=== PATIENT | female | born 1995 | race Caucasian/White ===

== ENCOUNTER → 2017-11-28 | Outpatient (CLI) | payer SELFPAY ==
[2017-11-28 18:21] LABS: HIV SCRN NEGATIVE (NEGATIVE)
[2017-11-28 18:22] LABS: CONTROL LINE INT CTR LINE PRESENT; HIV SCRN1 NEGATIVE (NEGATIVE)
[2017-11-30 09:23] LABS: HEPATITIS B SURFACE ANTIGEN NEGATIVE (NEGATIVE)
[2017-11-30 09:48] LABS: HEPATITIS C VIRUS ABY INDEX 0.2 INDEX (<0.8)
[2017-11-30 09:48] LABS: HEPATITIS B CORE ANTIBODY IGM NEGATIVE (NEGATIVE)
== END ==
LOC: M LAB 17:03
DX: Z11.4 Encounter for screening for human immunodeficiency virus [HIV] (principal); Z11.59 Encounter for screening for other viral diseases
CPT/HCPCS: 87340

== ENCOUNTER → 2018-07-24 | Outpatient (REF) | payer OTHER ==
[2018-07-24 19:56] LABS: INFLUENZA A AMPLIFICATION NEGATIVE (NEGATIVE); INFLUENZA B AMPLIFICATION NEGATIVE (NEGATIVE)
== END ==
LOC: M LAB REF 19:12
PROVIDERS: ATTEND Physician Assistant
DX: J11.1 Influenza due to unidentified influenza virus with other respiratory manifestations (principal)

== ENCOUNTER → 2019-02-20 | Outpatient (REF) | payer OTHER ==
[2019-02-20 20:28] LABS: INFLUENZA A AMPLIFICATION NEGATIVE (NEGATIVE); INFLUENZA B AMPLIFICATION NEGATIVE (NEGATIVE)
== END ==
LOC: M LAB REF 16:54
PROVIDERS: ATTEND Physician Assistant
DX: J11.1 Influenza due to unidentified influenza virus with other respiratory manifestations (principal)

== ENCOUNTER → 2020-03-11 | Outpatient (CLI) | payer OTHER ==
[2020-03-14 16:15] LABS: D001-IgE D pteronyssinus <0.10 kU/L (Class 0); E003-IGE HORSE EPITHELIA/DAND 1.17 kU/L (Class II); E004-IGE COW DANDER 0.11 kU/L (Class 0/I); E005-IgE Dog Dander 4.43 kU/L (Class IV); F002-IgE Milk 0.19 kU/L (Class 0/I); F004-IgE Wheat < 0.10 kU/L (Class 0); F013-IgE Peanut < 0.10 kU/L (Class 0); F014-IgE Soybean < 0.10 kU/L (Class 0); F026-IgE Pork 0.34 kU/L (Class I); F027-IgE Beef < 0.10 kU/L (Class 0); F210-IGE PINEAPPLE <0.10 kU/L (Class 0); F245-IgE Egg, Whole < 0.10 kU/L (Class 0); F290-IGE OYSTER <0.10 kU/L (Class 0); FX02-IgE Food Mix (Sea Foods) Negative (.); G002-IgE Bermuda Grass < 0.10 kU/L (Class 0); G008-IgE Kentucky Bluegrass < 0.10 kU/L (Class 0); M001-IgE Penicillium chrysogen < 0.10 kU/L (Class 0); M002 IgE Cladosporium herbaru < 0.10 kU/L (Class 0); M003 IgE Aspergillus fumigatu < 0.10 kU/L (Class 0); M006-IgE Alternaria alternata 0.47 kU/L (Class I); T001-IgE Maple/Box Elder < 0.10 kU/L (Class 0); T003-IgE Common Silver Birch < 0.10 kU/L (Class 0); T006-IgE Cedar, Mountain < 0.10 kU/L (Class 0); T007-IgE Oak, White < 0.10 kU/L (Class 0); T008-IgE Elm, American < 0.10 kU/L (Class 0); T015-IgE Ash, White < 0.10 kU/L (Class 0); T041-IgE Hickory, White < 0.10 kU/L (Class 0); T070-IgE White Mulberry < 0.10 kU/L (Class 0); W001-IgE Ragweed, Short < 0.10 kU/L (Class 0); W009-IgE Plantain, English < 0.10 kU/L (Class 0); W014-IgE Pigweed, Rough < 0.10 kU/L (Class 0); W018-IgE Sheep Sorrel < 0.10 kU/L (Class 0)
[2020-03-14 23:08] LABS: F026-IGE PORK 0.34 kU/L (Class I)
== END ==
LOC: M WUC 14:15
PROVIDERS: ATTEND Nurse Practitioner Family
DX: J30.1 Allergic rhinitis due to pollen (principal); J30.81 Allergic rhinitis due to animal (cat) (dog) hair and dander; J30.89 Other allergic rhinitis; R05 Cough; Z91.018 Allergy to other foods

== ENCOUNTER → 2020-03-11 | Outpatient (CLI) | payer OTHER ==
[2020-03-11 16:00] LABS: BASO # 0.1 10^3/uL (0.0-0.2); BASO % 0.7 % (0.0-1.0); EOS # 0.8 10^3/uL (0.0-0.5); EOS % 7.6 % (0.0-3.0); HEMATOCRIT 41.5 % (36.0-47.0); HEMOGLOBIN 13.7 g/dl (12.0-15.5); LYMPH # 2.8 10^3/uL (1.5-5.0); LYMPH % 25.9 % (24.0-44.0); MEAN CORPUSCULAR HEMOGLOBIN 30.5 pg (27.0-33.0); MEAN CORPUSCULAR VOLUME 92.4 fl (80.0-96.0); MONO # 0.7 10^3/uL (0.0-0.8); NEUTROPHILS # 6.4 10^3/uL (1.5-8.5); NEUTROPHILS % 59.2 % (36.0-66.0); PLATELET COUNT, AUTOMATED 326 10^3/uL (150-450); RED BLOOD COUNT 4.49 10^6/uL (4.00-5.40); WHITE BLOOD COUNT 10.8 10^3/uL (4.0-10.0)
[2020-03-11 16:40] LABS: ALBUMIN 4.1 GM/DL (3.2-5.2); ALT/SGPT 21 U/L (12-78); BILIRUBIN,TOTAL 0.3 MG/DL (0.2-1.0); BLOOD UREA NITROGEN 8 MG/DL (7-18); CALCIUM LEVEL 9.5 MG/DL (8.5-10.1); CARBON DIOXIDE LEVEL 27 MEQ/L (21-32); CHLORIDE LEVEL 105 MEQ/L (98-107); CHOLESTEROL LEVEL 220 MG/DL (<200); CHOLESTEROL RISK RATIO 5.945 (<5); CREATININE FOR GFR 0.94 MG/DL (0.55-1.30); GLOMERULAR FILTRATION RATE > 60.0 (>60); GLUCOSE, FASTING 88 MG/DL (70-100); HDL CHOLESTEROL 37 MG/DL (>40); IRON (FE) 38 UG/DL (50-170); NON-HDL-C 183 MG/DL; PERCENT SATURATION 12.3 % (13.2-45.0); POTASSIUM SERUM 4.1 MEQ/L (3.5-5.1); SODIUM LEVEL 138 MEQ/L (136-145); TOTAL 25(OH) VITAMIN D 53.9 NG/ML (30.0-100.0); TOTAL IRON BINDING CAPACITY 308 UG/DL (250-450); TOTAL PROTEIN 8.2 GM/DL (6.4-8.2); TRIGLYCERIDES LEVEL 435 MG/DL (<150)
== END ==
LOC: M WUC 14:11
PROVIDERS: ATTEND Internal Medicine
DX: Z00.00 Encounter for general adult medical examination without abnormal findings (principal); D50.9 Iron deficiency anemia, unspecified; E03.9 Hypothyroidism, unspecified

== ENCOUNTER 2021-04-03 02:37 | Emergency (ER) | payer OTHER ==
[~2021-04-03] VITALS: Ht 157.5 cm; Wt 59.1 kg
[2021-04-03] MEDS ORDERED: SYNT125T PO (02:44)
--- OUTSIDE RECORDS SUMMARY | 2021-04-03 02:46 | CCD ---
Author Author [facility] Address Unknown Phone Unavailable Support Name Relationship Address Phone JAROD SALINAS Next Of Kin [id number] [place] [address] NICK SALINAS Next Of Kin [address] [place] [address] Re-disclosure Warning The records that you are about to access may contain information from federally-assisted alcohol or drug abuse programs. If such information is present, then the following federally mandated warning applies: This information has been disclosed to you from records protected by federal confidentiality rules (42 CFR part 2). The federal rules prohibit you from making any further disclosure of this information unless further disclosure is expressly permitted by the written consent of the person to whom it pertains or as otherwise permitted by 42 CFR part 2. A general authorization for the release of medical or other information is NOT sufficient for this purpose. The Federal rules restrict any use of the information to criminally investigate or prosecute any alcohol or drug abuse patient.The records that you are about to access may contain highly sensitive health information, the redisclosure of which is protected by Article 27-F of the [facility] Public Health law. If you continue you may have access to information: Regarding HIV / AIDS; Provided by facilities licensed or operated by the [facility] Office of Mental Health; or Provided by the [facility] Office for People With Developmental Disabilities. If such information is present, then the following [facility] mandated warning applies: This information has been disclosed to you from confidential records which are protected by state law. State law prohibits you from making any further disclosure of this information without the specific written consent of the person to whom it pertains, or as otherwise permitted by law. Any unauthorized further disclosure in violation of state law may result in a fine or prison sentence or both. A general authorization for the release of medical or other information is NOT sufficient authorization for further disc losure. Family History Family Member Name Family Member Gender Family Member Status Date o f Status Description Data Source(s) Unknown Unknown Problem [facility] ([facility]) Immunizations Vaccine Date Status Description Data Source(s) COVID-19 VACCINE Moderna 10/11/2020 12:00:00 AM EDT completed [facility] Vaccine Series Complete: YESThis Data wa s Submitted to [facility] [employer]. COVID-19 VACC,MRNA(MODERNA)/PF 10/11/2020 12:00:00 AM EDT completed [facility] COVID-19 VACCINE Moderna 09/10/2020 12:00:00 AM EDT completed [facility] Vaccine Series Complete: NOThis Data was Submitted to [facility] [employer]. COVID-19 VACCINE, MRNA-[id number], LNP-S (MODERNA)/PF 09/10/2020 1 2:00:00 AM EDT completed [facility] INFLUENZA VIRUS VACCINE QUADRIVALENT 2019- (6 MOS AN D UP) 05/04/2020 12:00:00 AM EST completed [facility] Medications Medication Brand Name Start Date Product Form Dose Route Admi nistrative Instructions Pharmacy Instructions Status Indications Reaction Description Data Source(s) 112 mcg 03/04/2021 12:00:00 AM EDT tablet 30 TAKE ONE TABLET BY MOUTH EVERY DAY - NEEDS APPOINTMENT TAKE ONE TABLET BY MOUTH EVERY DAY - NEEDS APPOINTMENT SOLD: 03/08/2021 [facility] 112 mcg 02/01/2021 12:00:00 AM EDT tablet 30 TAKE ONE TABLET BY MOUTH EVERY DAY - NEEDS APPOINTMENT TAKE ONE TABLET BY MOUTH EVERY DAY - NEEDS APPOINTMENT SOLD: 02/08/2021 [facility] 50 mcg/actuation 11/18/2020 12:00:00 AM EDT spray,suspension 16 INSTILL 1 SPRAY IN EACH NOSTIL ONCE A DAY INSTILL 1 SPRAY IN EACH NOSTIL ONCE A DAY SOLD: 11/18/2020 [facility] 100 mcg/actuation 11/18/2020 12:00:00 AM EDT blister with de vice 30 INHALE ONE PUFF BY MOUTH EVERY DAY WITH MOUTH RINSING INHALE ONE PUFF BY MOUTH EVERY DAY WITH MOUTH RINSING SOLD: 11/18/2020 [facility] 0.1 % 11/17/2020 12:00:00 AM EDT drops 5 INSTILL 1 DROP IN EACH EYE ONCE DAILY NEEDED FOR ITCHY OR WATERY EYES INSTILL 1 DROP IN EACH EYE ONCE DAILY NEEDED FOR ITCHY OR WATERY EYES SOLD: 11/18/2020 [facility] 90 mcg/actuation 10/14/2020 12:00:00 AM EDT HFA aerosol inha ler 8 INHALE TWO PUFFS BY MOUTH EVERY 4 TO 6 HOURS UP TO FOUR TIMES A DAY NEEDED FOR FOR SHORTNESS OF BREATH, WHEEZING OR PERSISTENT COUGH INHALE TWO PUFFS BY MOUTH EVERY 4 TO 6 HOURS UP TO FOUR TIMES A DAY NEEDED FOR FOR SHORTNESS OF BREATH, WHEEZING OR PERSISTENT COUGH SOLD: 10/17/2020 [facility] Radha Fe 06/23 28 Day Pack 1 mg-20 mcg (21)/75 mg (7) NORETHINDRONE-E.ESTRADIOL-IRON 10/14/2020 12:00:00 AM EDT tablet 84 TAKE ONE TABLET BY MOUTH EVERY DAY TAKE ONE TABLET BY MOUTH EVERY DAY SOLD: 10/17/2020 [facility] 10 mg 08/19/2020 12:00:00 AM EDT tablet 30 TAKE ONE TABLET BY MOUTH AT BEDTIME NEEDED FOR ALLERGIC RHINITIS TAKE ONE TABLET BY MOUTH AT BEDTIME NEEDED FOR ALLERGIC RHINITIS SOLD: 09/22/2020 [facility] 10 mg 08/19/2020 12:00:00 AM EDT tablet 30 TAKE ONE TABLET BY MOUTH AT BEDTIME NEEDED FOR ALLERGIC RHINITIS TAKE ONE TABLET BY MOUTH AT BEDTIME NEEDED FOR ALLERGIC RHINITIS SOLD: 08/22/2020 [facility] montelukast 10 MG Oral Tablet MONTELUKAST SODIUM 07/15/2020 12:0 0:00 AM EST tablet 30 TAKE ONE TABLET BY MOUTH EVERY D AY TAKE ONE TABLET BY MOUTH EVERY DAY SOLD: 07/17/2020 [facility] 112 mcg 07/15/2020 12:00:00 AM EST tablet 30 TAKE ONE TABLET BY MOUTH EVERY DAY TAKE ONE TABLET BY MOUTH EVERY DAY SOLD: 07/17/2020 [facility] montelukast 10 MG Oral Tablet MONTELUKAST SODIUM 07/15/2020 12:0 0:00 AM EST tablet 30 TAKE ONE TABLET BY MOUTH EVERY D AY TAKE ONE TABLET BY MOUTH EVERY DAY SOLD: 08/22/2020 [facility] montelukast 10 MG Oral Tablet MONTELUKAST SODIUM 07/15/2020 12:0 0:00 AM EST tablet 30 TAKE ONE TABLET BY MOUTH EVERY D AY TAKE ONE TABLET BY MOUTH EVERY DAY SOLD: 10/25/2020 [facility] 112 mcg 07/15/2020 12:00:00 AM EST tablet 30 TAKE ONE TABLET BY MOUTH EVERY DAY TAKE ONE TABLET BY MOUTH EVERY DAY SOLD: 12/31/2020 [facility] 112 mcg 07/15/2020 12:00:00 AM EST tablet 30 TAKE ONE TABLET BY MOUTH EVERY DAY TAKE ONE TABLET BY MOUTH EVERY DAY SOLD: 11/25/2020 [facility] montelukast 10 MG Oral Tablet MONTELUKAST SODIUM 07/15/2020 12:0 0:00 AM EST tablet 30 TAKE ONE TABLET BY MOUTH EVERY D AY TAKE ONE TABLET BY MOUTH EVERY DAY SOLD: 09/22/2020 [facility] 112 mcg 07/15/2020 12:00:00 AM EST tablet 30 TAKE ONE TABLET BY MOUTH EVERY DAY TAKE ONE TABLET BY MOUTH EVERY DAY SOLD: 09/22/2020 [facility] montelukast 10 MG Oral Tablet MONTELUKAST SODIUM 07/15/2020 12:0 0:00 AM EST tablet 30 TAKE ONE TABLET BY MOUTH EVERY D AY TAKE ONE TABLET BY MOUTH EVERY DAY SOLD: 12/31/2020 [facility] montelukast 10 MG Oral Tablet MONTELUKAST SODIUM 07/15/2020 12:0 0:00 AM EST tablet 30 TAKE ONE TABLET BY MOUTH EVERY D AY TAKE ONE TABLET BY MOUTH EVERY DAY SOLD: 11/25/2020 [facility] 112 mcg 07/15/2020 12:00:00 AM EST tablet 30 TAKE ONE TABLET BY MOUTH EVERY DAY TAKE ONE TABLET BY MOUTH EVERY DAY SOLD: 10/25/2020 [facility] 112 mcg 07/15/2020 12:00:00 AM EST tablet 30 TAKE ONE TABLET BY MOUTH EVERY DAY TAKE ONE TABLET BY MOUTH EVERY DAY SOLD: 08/22/2020 [facility] 0.3 mg/0.3 mL 04/28/2020 12:00:00 AM EST auto-injector 2 USE DIRECTED FOR ANAPYLAXIS USE DIRECTED FOR ANAPYLAXIS SOLD: 05/04/2020 [facility] 100 mcg/actuation 01/15/2020 12:00:00 AM EDT blister with de vice 30 INHALE ONE PUFF BY MOUTH EVERY DAY RINSE AFTER USE INHALE ONE PUFF BY MOUTH EVERY DAY RINSE AFTER USE SOLD: 03/21/2020 [facility] 100 mcg/actuation 01/15/2020 12:00:00 AM EDT blister with de vice 30 INHALE ONE PUFF BY MOUTH EVERY DAY RINSE AFTER USE INHALE ONE PUFF BY MOUTH EVERY DAY RINSE AFTER USE SOLD: 10/17/2020 [facility] 100 mcg/actuation 01/15/2020 12:00:00 AM EDT blister with de vice 30 INHALE ONE PUFF BY MOUTH EVERY DAY RINSE AFTER USE INHALE ONE PUFF BY MOUTH EVERY DAY RINSE AFTER USE SOLD: 08/22/2020 [facility] 100 mcg/actuation 01/15/2020 12:00:00 AM EDT blister with de vice 30 INHALE ONE PUFF BY MOUTH EVERY DAY RINSE AFTER USE INHALE ONE PUFF BY MOUTH EVERY DAY RINSE AFTER USE SOLD: 02/12/2020 [facility] 112 mcg 01/13/2020 12:00:00 AM EDT tablet 30 TAKE ONE TABLET BY MOUTH EVERY DAY TAKE ONE TABLET BY MOUTH EVERY DAY SOLD: 06/17/2020 [facility] 112 mcg 01/13/2020 12:00:00 AM EDT tablet 30 TAKE ONE TABLET BY MOUTH EVERY DAY TAKE ONE TABLET BY MOUTH EVERY DAY SOLD: 04/16/2020 [facility] 112 mcg 01/13/2020 12:00:00 AM EDT tablet 30 TAKE ONE TABLET BY MOUTH EVERY DAY TAKE ONE TABLET BY MOUTH EVERY DAY SOLD: 02/12/2020 [facility] 112 mcg 01/13/2020 12:00:00 AM EDT tablet 30 TAKE ONE TABLET BY MOUTH EVERY DAY TAKE ONE TABLET BY MOUTH EVERY DAY SOLD: 03/15/2020 [facility] 112 mcg 01/13/2020 12:00:00 AM EDT tablet 30 TAKE ONE TABLET BY MOUTH EVERY DAY TAKE ONE TABLET BY MOUTH EVERY DAY SOLD: 05/15/2020 [facility] montelukast 10 MG Oral Tablet MONTELUKAST SODIUM 01/08/2020 12:0 0:00 AM EDT tablet 30 TAKE ONE TABLET BY MOUTH EVERY D AY TAKE ONE TABLET BY MOUTH EVERY DAY SOLD: 02/12/2020 [facility] 90 mcg/actuation 01/08/2020 12:00:00 AM EDT HFA aerosol inha ler 8 INHALE TWO PUFFS BY MOUTH EVERY 4 TO 6 HOURS UP TO FOUR TIMES A DAY NEEDED FOR FOR SHORTNESS OF BREATH, WHEEZING OR PERSISTANT COUGH INHALE TWO PUFFS BY MOUTH EVERY 4 TO 6 HOURS UP TO FOUR TIMES A DAY NEEDED FOR FOR SHORTNESS OF BREATH, WHEEZING OR PERSISTANT COUGH SOLD: 02/12/2020 [facility] 90 mcg/actuation 01/08/2020 12:00:00 AM EDT HFA aerosol inha ler 8 INHALE TWO PUFFS BY MOUTH EVERY 4 TO 6 HOURS UP TO FOUR TIMES A DAY NEEDED FOR FOR SHORTNESS OF BREATH, WHEEZING OR PERSISTANT COUGH INHALE TWO PUFFS BY MOUTH EVERY 4 TO 6 HOURS UP TO FOUR TIMES A DAY NEEDED FOR FOR SHORTNESS OF BREATH, WHEEZING OR PERSISTANT COUGH SOLD: 08/22/2020 [facility] montelukast 10 MG Oral Tablet MONTELUKAST SODIUM 01/08/2020 12:0 0:00 AM EDT tablet 30 TAKE ONE TABLET BY MOUTH EVERY D AY TAKE ONE TABLET BY MOUTH EVERY DAY SOLD: 04/16/2020 [facility] montelukast 10 MG Oral Tablet MONTELUKAST SODIUM 01/08/2020 12:0 0:00 AM EDT tablet 30 TAKE ONE TABLET BY MOUTH EVERY D AY TAKE ONE TABLET BY MOUTH EVERY DAY SOLD: 06/17/2020 [facility] montelukast 10 MG Oral Tablet MONTELUKAST SODIUM 01/08/2020 12:0 0:00 AM EDT tablet 30 TAKE ONE TABLET BY MOUTH EVERY D AY TAKE ONE TABLET BY MOUTH EVERY DAY SOLD: 03/15/2020 [facility] montelukast 10 MG Oral Tablet MONTELUKAST SODIUM 01/08/2020 12:0 0:00 AM EDT tablet 30 TAKE ONE TABLET BY MOUTH EVERY D AY TAKE ONE TABLET BY MOUTH EVERY DAY SOLD: 05/15/2020 [facility] Radha Fe 06/23 28 Day Pack 1 mg-20 mcg (21)/75 mg (7) NORETHINDRONE ACETATE- ETHINYL ESTRADIOL/FERROUS FUMARATE 12/12/2019 12:00:00 AM EDT tablet 84 TAKE ONE TABLET BY MOUTH DAILY TAKE ONE TABLET BY MOUTH DAILY SOLD: 02/21/2020 [facility] Radha Fe 06/23 28 Day Pack 1 mg-20 mcg (21)/75 mg (7) NORETHINDRONE ACETATE- ETHINYL ESTRADIOL/FERROUS FUMARATE 12/12/2019 12:00:00 AM EDT tablet 84 TAKE ONE TABLET BY MOUTH DAILY TAKE ONE TABLET BY MOUTH DAILY SOLD: 07/26/2020 [facility] Radha Fe 06/23 28 Day Pack 1 mg-20 mcg (21)/75 mg (7) NORETHINDRONE ACETATE- ETHINYL ESTRADIOL/FERROUS FUMARATE 12/12/2019 12:00:00 AM EDT tablet 84 TAKE ONE TABLET BY MOUTH DAILY TAKE ONE TABLET BY MOUTH DAILY SOLD: 05/15/2020 [facility] Insurance Providers Payer name Policy type / Coverage type Policy ID Covered republican ID Covered republican's relationship to ward Policy Ward Plan Information [facility] [id number] [facility] [id number] FA2 [id number] [facility] [id number] FA2 [id number] [employer] SP SELF PAY ONLY [id number] SP [id number] [employer] [address] Family Dependent Problems, Conditions, and Diagnoses No Information Surgeries/Procedures No Information Results ID Date Data Source [id number] 03/11/2020 02:17:00 PM EDT [facility] ([facility] Name Value Range Interpretation Code Description Data Meredith rce(s) Supporting Document(s) Glucose, Fasting 88 mg/dL 70-100 Normal (applies to non-numeric results) [facility] ([facility] Blood Urea Nitrogen 8 mg/dL 7-18 Normal (applies to non-nume tawana results) [facility] ([facility] Creatinine For GFR 0.94 mg/dL 0.55-1.30 Normal (applies to non -numeric results) [facility] ([facility] Glomerular Filtration Rate Laboratory test result Normal (applies to non- numeric results) [facility] ([facility] ) <content>Units are mL/min/1.73 m2</content>
<content></content>
<content>Chronic Kidney Disease Staging per NK[facility]:</content>
<content></content>
<content>Stage I & II GFR >=60 Normal to Mildly Decreased</content>
<content>Stage III GFR 30-59 Moderately Decreased</content>
<content>Stage IV GFR 15-29 Severely Decreased</content>
<content>Stage V GFR <15 Very Little GFR Left</content>
<content>ESRD GFR <15 on [employer]</content>
<content></content> Sodium Level 138 meq/L 136-145 Normal (applies to non-numeric res ults) [facility] ([facility] Potassium Serum 4.1 meq/L 3.5-5.1 Normal (applies to non-numeric results) [facility] ([facility] Anion Gap 6 meq/L 8-16 Below low normal [facility] ( [facility] Chloride Level 105 meq/L 98-107 Normal (applies to non-numeric r esults) [facility] ([facility] Carbon Dioxide Level 27 meq/L 21-32 Normal (applies to non-num ba results) [facility] ([facility] Ast/Sgot 13 U/L 7-37 Normal (applies to non-numeric resul ts) [facility] ([facility] Calcium Level 9.5 mg/dL 8.5-10.1 Normal (applies to non-numeric re sults) [facility] ([facility] Alt/SGPT 21 U/L 12-78 Normal (applies to non-numeric resul ts) [facility] ([facility] Bilirubin,Total 0.3 mg/dL 0.2-1.0 Normal (applies to non-numeric results) [facility] ([facility] Alkaline Phosphatase 68 U/L 45-117 Normal (applies to non-num ba results) [facility] ([facility] Total Protein 8.2 GM/DL 6.4-8.2 Normal (applies to non-numeric re sults) [facility] ([facility] Albumin 4.1 GM/DL 3.2-5.2 Normal (applies to non-numeric resul ts) [facility] ([facility] Albumin/Globulin Ratio 1.0 1.2-2.2 Below low normal [facility] ([facility] ID Date Data Source [id number] 03/11/2020 02:17:00 PM EDT [facility] ([facility] Name Value Range Interpretation Code Description Data Meredith rce(s) Supporting Document(s) Total Iron Binding Capacity 308 ug/dL 250-450 Norm al (applies to non-numeric results) [facility] ([facility] ) Iron (Fe) 38 ug/dL 50-170 Below low normal [facility] ( [facility] Percent Saturation 12.3 % 13.2-45.0 Below low normal [facility] ([facility] ID Date Data Source [id number] 03/11/2020 02:17:00 PM EDT [facility] ([facility] Name Value Range Interpretation Code Description Data Meredith rce(s) Supporting Document(s) Calcidiol [Mass/volume] in Serum or Plasma 53.9 ng/mL 30.0- 100.0 Normal (applies to non-numeric results) [facility] ([facility] Thyrotropin [Units/volume] in Serum or Plasma 2.870 uIU/ML 0. 358-3.740 Normal (applies to non-numeric results) [facility] ([facility] ID Date Data Source [id number] 03/11/2020 02:17:00 PM EDT [facility] ([facility] Name Value Range Interpretation Code Description Data Meredith rce(s) Supporting Document(s) Cholesterol Level 220 mg/dL Above high normal [facility] ([facility] Triglycerides Level 435 mg/dL Above high normal [facility] ([facility] Cholesterol Risk Ratio 5.945 Above high normal [facility] ([facility] HDL Cholesterol 37 mg/dL Below low normal [facility] ([facility] Non-HDL-C 183 mg/dL Normal (applies to non-numeric resul ts) [facility] ([facility] ID Date Data Source [id number] 03/11/2020 02:17:00 PM EDT [facility] ([facility] Name Value Range Interpretation Code Description Data Meredith rce(s) Supporting Document(s) White Blood Count 10.8 10 4.0-10.0 Above high normal [facility] ([facility] Hematocrit 41.5 % 36.0-47.0 Normal (applies to non-numeric resul ts) [facility] ([facility] Red Blood Count 4.49 10 4.00-5.40 Normal (applies to non-numeric results) [facility] ([facility] Hemoglobin 13.7 g/dL 12.0-15.5 Normal (applies to non-numeric resul ts) [facility] ([facility] Mean Corpuscular Volume 92.4 fl 80.0-96.0 Normal ( applies to non-numeric results) [facility] ([facility] ) Mean Corpuscular Hemoglobin 30.5 pg 27.0-33.0 Norm al (applies to non-numeric results) [facility] ([facility] ) Mean Corpuscular HGB Conc 33.0 g/dL 32.0-36.5 Normal (applies to non-numeric results) [facility] ([facility] ) Platelet Count, Automated 326 10 150-450 Normal (applies to non-numeric results) [facility] ([facility] ) Red Cell Distribution Width 12.7 % 11.5-14.5 Norm al (applies to non-numeric results) [facility] ([facility] ) Neutrophils % 59.2 % 36.0-66.0 Normal (applies to non-numeric re sults) [facility] ([facility] Lymph % 25.9 % 24.0-44.0 Normal (applies to non-numeric resul ts) [facility] ([facility] Eos % 7.6 % 0.0-3.0 Above high normal [facility] ([facility] Bledsoe % 6.0 % 0.0-5.0 Above high normal [facility] ([facility] Baso % 0.7 % 0.0-1.0 Normal (applies to non-numeric resul ts) [facility] ([facility] Nucleated Red Blood Cell % 0.0 % 0-0 Normal (applies to n on-numeric results) [facility] ([facility] Neutrophils # 6.4 10 1.5-8.5 Normal (applies to non-numeric re sults) [facility] ([facility] Immature Granulocyte % 0.6 % 0-3.0 Normal (applies to non-n umeric results) [facility] ([facility] Bledsoe # 0.7 10 0.0-0.8 Normal (applies to non-numeric resul ts) [facility] ([facility] Eos # 0.8 10 0.0-0.5 Above high normal [facility] ([facility] Lymph # 2.8 10 1.5-5.0 Normal (applies to non-numeric resul ts) [facility] ([facility] Baso # 0.1 10 0.0-0.2 Normal (applies to non-numeric resul ts) [facility] ([facility] Procedure Social History No Information
[2021-04-03] MEDS ORDERED: ONDANSETRON 4MG/2ML VIAL IV ONE (02:55)
[2021-04-03] MEDS ORDERED: NS 1,000 ML IV ONE (02:55)
[2021-04-03 03:13] LABS: BASO # 0.1 10^3/uL (0.0-0.2); BASO % 0.5 % (0.0-1.0); EOS # 0.1 10^3/uL (0.0-0.5); EOS % 1.1 % (0.0-3.0); HEMATOCRIT 36.5 % (36.0-47.0); HEMOGLOBIN 12.2 g/dl (12.0-15.5); LYMPH # 2.7 10^3/uL (1.5-5.0); LYMPH % 25.3 % (24.0-44.0); MEAN CORPUSCULAR HEMOGLOBIN 30.5 pg (27.0-33.0); MEAN CORPUSCULAR HGB CONC 33.4 g/dl (32.0-36.5); MEAN CORPUSCULAR VOLUME 91.3 fl (80.0-96.0); MONO # 0.6 10^3/uL (0.0-0.8); MONO % 5.1 % (2.0-8.0); NEUTROPHILS # 7.2 10^3/uL (1.5-8.5); NEUTROPHILS % 67.1 % (36.0-66.0); PLATELET COUNT, AUTOMATED 260 10^3/uL (150-450); WHITE BLOOD COUNT 10.7 10^3/uL (4.0-10.0)
[2021-04-03 03:24] LABS: AMPHETAMINES LEVEL URINE NEGATIVE (NEGATIVE); BARBITURATES URINE NEGATIVE (NEGATIVE); BENZODIAZEPINES URINE NEGATIVE (NEGATIVE); CANNABINOIDS URINE NEGATIVE (NEGATIVE); COCAINE METABOLITE URINE NEGATIVE (NEGATIVE); METHADONE URINE NEGATIVE (NEGATIVE); OPIATES URINE NEGATIVE (NEGATIVE); PHENCYCLIDINE URINE NEGATIVE (NEGATIVE)
[2021-04-03 03:34] LABS: OSMOLALITY SERUM 343 MOSM/KG (275-295)
[2021-04-03 03:55] LABS: ALBUMIN 4.2 GM/DL (3.2-5.2); ALT/SGPT 47 U/L (12-78); BILIRUBIN,DIRECT < 0.1 MG/DL (0.0-0.2); BILIRUBIN,TOTAL 0.3 MG/DL (0.2-1.0); BLOOD UREA NITROGEN 7 MG/DL (7-18); CALCIUM LEVEL 8.6 MG/DL (8.5-10.1); CARBON DIOXIDE LEVEL 24 MEQ/L (21-32); CHLORIDE LEVEL 107 MEQ/L (98-107); CPK CREATINE PHOSPHOKINASE 129 U/L (26-192); CREATININE FOR GFR 0.76 MG/DL (0.55-1.30); ETHYL ALCOHOL (ETHANOL) 0.221 % (0.000-0.010); GLOMERULAR FILTRATION RATE > 60.0 (>60); GLUCOSE, FASTING 149 MG/DL (70-100); POTASSIUM SERUM 3.1 MEQ/L (3.5-5.1); SALICYLATE LEVEL < 1.7 MG/DL (5.0-30.0); SODIUM LEVEL 140 MEQ/L (136-145); TOTAL PROTEIN 7.8 GM/DL (6.4-8.2)
[2021-04-03 03:56] LABS: ACETAMINOPHEN LEVEL < 2.0 UG/ML (10.0-30.0)
--- NOTE | 2021-04-03 04:10 | REPVR ---
PROCEDURE INFORMATION: Exam: CT Head Without Contrast Exam date and time: 04/03/2021 3:14 AM Age: 25 years old Clinical indication: Altered mental status/memory loss; Confusion or disorientation TECHNIQUE: Imaging protocol: Computed tomography of the head without contrast. Radiation optimization: All CT scans at this facility use at least one of these dose optimization techniques: automated exposure control; mA and/or kV adjustment per patient size (includes targeted exams where dose is matched to clinical indication); or iterative reconstruction. COMPARISON: No relevant prior studies available. FINDINGS: Images through the base of the brain and posterior fossa, including the brainstem are slightly degraded by beam hardening artifacts from the adjacent calvarium. There is no evidence of acute intracranial hemorrhage, extra axial fluid collection or hematoma. There is no midline shift or herniation. The cerebellar tonsils are seen crowding the foramen magnum, completely effacing the 4th ventricle but are not ectopic and do not appear to cause proximal ventricular dilation. This is likely an incidental finding of anatomic variation. No evidence of pneumocephalus. No CT findings are seen at the current time to suggest changes of acute territorial vascular infarction. Note is made however, that CT changes, may lag clinical findings in acute CVA. If clinically indicated, consideration could be given to MRI with diffusion weighted imaging, due to its greater sensitivity, for early detection of acute ischemic change. Incidental intracranial calcifications are noted. No pericranial scalp hematoma is seen. No acute cranial vault fracture is seen. No fluid is seen within the visualized paranasal sinuses or mastoid air cells. The visualized middle ear cavities are not opacified. IMPRESSION: No evidence of an acute intracranial abnormality. No evidence of acute territorial major vessel infarct, mass effect, or hemorrhage. Other findings discussed above. Electronically signed by: Gamaliel Alba On 04/03/2021 04:10:03 AM
--- NOTE | 2021-04-03 04:14 | REPVR ---
PROCEDURE INFORMATION: Exam: CT Cervical Spine Without Contrast Exam date and time: 04/03/2021 3:14 AM Age: 25 years old Clinical indication: Injury or trauma; Fall; Blunt trauma; Additional info: Altered mental status TECHNIQUE: Imaging protocol: Computed tomography images of the cervical spine without contrast. Radiation optimization: All CT scans at this facility use at least one of these dose optimization techniques: automated exposure control; mA and/or kV adjustment per patient size (includes targeted exams where dose is matched to clinical indication); or iterative reconstruction. COMPARISON: No relevant prior studies available. FINDINGS: There is straightening of cervical lordosis. Cervical vertebral body heights, posterior cervical alignment, and prevertebral soft tissues are within normal limits. The facet joints are not subluxed or dislocated. The atlantodental interval is maintained. Inter spinous spacing is within normal limits. No acute fracture of the cervical spine is seen. No osseous compromise of the spinal canal or neural foramina is seen at any level. If there are neurologic symptoms, further evaluation by MRI is advised. Multiple cervical lymph nodes seen bilaterally, not obviously pathologic by size criteria. IMPRESSION: No acute fracture or malalignment of the cervical spine. Other findings discussed above. Electronically signed by: Gamaliel Alba On 04/03/2021 04:14:04 AM
[2021-04-03 04:24] LABS: FREE T4 1.55 NG/DL (0.76-1.46)
--- OUTSIDE RECORDS SUMMARY | 2021-04-03 05:41 | CCD ---
Author Author [facility] Address Unknown Phone Unavailable Support Name Relationship Address Phone JAROD SALINAS Next Of Kin [phone] [place] [address] NICK SALINAS Next Of Kin [phone] [place] [address] Re-disclosure Warning The records that you are [...] is protected by Article [address]-F of the [facility] Public Health law. If you continue you may have access to information: Regarding HIV / AIDS; Provided by facilities licensed or operated by the [facility] Office of Mental Health; or Provided by the [facility] Office for People With Developmental Disabilities. If such information is present, then the following [facility] mandated warning applies: This information has [...] law may result in a fine or custodial sentence or both. A general authorization for [...] Complete: YESThis Data wa s Submitted to [facility] Via [facility]. COVID-19 VACC,MRNA(MODERNA)/PF 10/11/2020 12:00:00 AM EDT completed [facility] COVID-19 VACCINE Moderna 09/10/2020 12:00:00 AM EDT completed [facility] Vaccine Series Complete: NOThis Data was Submitted to [facility] Via [facility]. COVID-19 VACCINE, MRNA-1273, LNP-S (MODERNA)/PF 09/10/2020 1 [...] ONE TABLET BY MOUTH DAILY SOLD: 07/26/2020 [employer] Radha Fe 06/23 28 Day Pack 1 mg-20 mcg (21)/75 mg (7) NORETHINDRONE ACETATE- ETHINYL ESTRADIOL/FERROUS FUMARATE 12/12/2019 12:00:00 AM EDT tablet 84 TAKE ONE TABLET BY MOUTH DAILY TAKE ONE TABLET BY MOUTH DAILY SOLD: 05/15/2020 [employer] Insurance Providers Payer name Policy type / Coverage type Policy ID Covered alliance party ID Covered alliance party's relationship to ward Policy Ward Plan Information [facility] [id number] [facility] [id number] FA2 [id number] [facility] [id number] FA2 [id number] [employer] SP SELF PAY ONLY [id number] SP [id number] OTHER [employer] [id number] Family Dependent Problems, Conditions, and Diagnoses No Information Surgeries/Procedures No Information Results ID Date Data Source [id number] 03/11/2020 02:17:00 PM EDT [facility] ([facility] Name Value Range [...] Little GFR Left</content>
<content>ESRD GFR <15 on FLIGHT ATTENDANT/INFLIGHT SUPERVISOR</content>
<content></content> Sodium Level 138 meq/L 136-145 Normal (applies to non-numeric res ults) [facility] ([facility] Potassium Serum 4.1 meq/L 3.5-5.1 Normal (applies to non-numeric results) [facility] ([facility] Anion Gap 6 meq/L 8-16 Below low normal [facility] ( [facility] Chloride Level 105 meq/L 98-107 Normal (applies to non-numeric r esults) [facility] ([facility] Carbon Dioxide Level [...] Ratio 1.0 1.2-2.2 Below low normal [facility] ([facility] ID Date Data Source [id number] 03/11/2020 02:17:00 PM EDT [facility] ([facility] Name Value Range Interpretation Code Description Data Meredith rce(s) Supporting Document(s) Total Iron Binding Capacity 308 ug/dL 250-450 Norm al (applies to non-numeric results) [facility] ([facility] ) Iron (Fe) 38 ug/dL 50-170 Below low normal [facility] ( [facility] Percent Saturation 12.3 % 13.2-45.0 Below low normal [facility] ([facility] ID Date Data Source [id number] 03/11/2020 02:17:00 PM EDT [facility] ([facility] Name Value Range Interpretation Code Description Data Meredith rce(s) Supporting Document(s) Calcidiol [Mass/volume] in Serum or Plasma 53.9 ng/mL 30.0- 100.0 Normal (applies to non-numeric results) [facility] ([facility] Thyrotropin [Units/volume] in Serum or Plasma 2.870 uIU/ML 0. 358-3.740 Normal (applies to non-numeric results) [facility] ([facility] ID Date Data Source [id number] 03/11/2020 02:17:00 PM EDT [facility] ([facility] Name Value Range Interpretation Code Description Data Meredith rce(s) Supporting Document(s) Cholesterol Level 220 mg/dL Above high normal [facility] ([facility] Triglycerides Level 435 mg/dL Above high normal [facility] ([facility] Cholesterol Risk Ratio 5.945 Above high normal [facility] ([facility] HDL Cholesterol 37 mg/dL Below low normal [facility] ([facility] Non-HDL-C 183 mg/dL Normal (applies to non-numeric resul ts) [facility] ([facility] ID Date Data Source [id number] 03/11/2020 02:17:00 PM EDT [facility] ([facility] Name Value Range Interpretation Code Description Data Meredith rce(s) Supporting Document(s) White Blood Count 10.8 10 4.0-10.0 Above high normal [facility] ([facility] Hematocrit 41.5 % 36.0-47.0 Normal (applies to non-numeric resul ts) [facility] ([facility] Red Blood Count 4.49 10 4.00-5.40 Normal (applies to non-numeric results) [facility] ([facility] Hemoglobin 13.7 g/dL 12.0-15.5 Normal (applies to non-numeric resul ts) [facility] ([facility] Mean Corpuscular Volume 92.4 fl 80.0-96.0 Normal ( applies to non-numeric results) [facility] ([facility] ) Mean Corpuscular Hemoglobin 30.5 pg 27.0-33.0 Norm al (applies to non-numeric results) [facility] ([facility] ) Mean Corpuscular HGB Conc 33.0 g/dL 32.0-36.5 Normal (applies to non-numeric results) [facility] ([facility] ) Platelet Count, Automated 326 10 150-450 Normal (applies to non-numeric results) [facility] ([facility] ) Red Cell Distribution Width 12.7 % 11.5-14.5 Norm al (applies to non-numeric results) [facility] ([facility] ) Neutrophils % 59.2 % 36.0-66.0 Normal (applies to non-numeric re sults) [facility] ([facility] Lymph % 25.9 % 24.0-44.0 Normal (applies to non-numeric resul ts) [facility] ([facility] Eos % 7.6 % 0.0-3.0 Above high normal [facility] ([facility] Garvin % 6.0 % 0.0-5.0 Above high normal [facility] ([facility] Baso % 0.7 [...] umeric results) [facility] ([facility] Garvin # 0.7 10 0.0-0.8 Normal (applies to [...]
[2021-04-03 06:30] VITALS: BP 106/61
--- NOTE | 2021-04-04 05:43 | ECGEPIP ---
[facility] - ED Test Date: 2021-04-03 Pat Name: BREANNE SALINAS Department: Room: - Gender: Female [employer] Coordinator: YECENIA ECHAVARRIA : 1995 Requested By: KRISTI Brizuela Order Number: [id number] Reading MD: Immanuel Mckinney Measurements Intervals Hunter Rate: 96 P: 69 WY: 142 QRS: 64 QRSD: 96 T: 41 QT: 360 QTc: 454 Interpretive Statements Normal sinus rhythm INCOMPLETE RIGHT BUNDLE BRANCH BLOCK NO PRIORS FOR COMPARISON Electronically Signed on 04-04-2021 5:43:07 EDT by Immanuel Mckinney
== END 2021-04-03 06:50 | disposition home or self-care (01) ==
LOC: M ED 02:37
DX: F10.120 Alcohol abuse with intoxication, uncomplicated (principal)
CPT/HCPCS: 70450; 72125; 80048; 80076; 80143; 80307; 82077; 82550; 83930; 84439; 84443; 84702; 85025; 93005; 93041; 94760; 96361; 96374; 99285; J2405

== ENCOUNTER → 2021-10-24 | Outpatient (CLI) | payer OTHER ==
[~2021-10-24] MED LIST: SYNT125T PO
[2021-10-24 19:54] LABS: BASO # 0.1 10^3/uL (0.0-0.2); BASO % 0.7 % (0.0-1.0); EOS # 0.8 10^3/uL (0.0-0.5); EOS % 6.8 % (0.0-3.0); HEMATOCRIT 38.8 % (36.0-47.0); HEMOGLOBIN 12.5 g/dl (12.0-15.5); LYMPH # 2.8 10^3/uL (1.5-5.0); LYMPH % 25.8 % (24.0-44.0); MEAN CORPUSCULAR HEMOGLOBIN 30.8 pg (27.0-33.0); MEAN CORPUSCULAR HGB CONC 32.2 g/dl (32.0-36.5); MEAN CORPUSCULAR VOLUME 95.6 fl (80.0-96.0); MONO % 8.9 % (2.0-8.0); NEUTROPHILS # 6.2 10^3/uL (1.5-8.5); NEUTROPHILS % 56.6 % (36.0-66.0); PLATELET COUNT, AUTOMATED 273 10^3/uL (150-450); RED BLOOD COUNT 4.06 10^6/uL (4.00-5.40)
[2021-10-24 20:23] LABS: THYROID STIMULATING HORMONE 0.273 uIU/ML (0.358-3.740)
[2021-10-24 20:24] LABS: TOTAL 25(OH) VITAMIN D 17.4 NG/ML (30.0-100.0)
== END ==
LOC: M WUC 15:35
PROVIDERS: ATTEND Internal Medicine
DX: D50.9 Iron deficiency anemia, unspecified (principal); E55.9 Vitamin D deficiency, unspecified; E03.9 Hypothyroidism, unspecified

== ENCOUNTER → 2022-05-15 | Outpatient (CLI) | payer BC ==
[2022-05-15 17:29] LABS: TOTAL 25(OH) VITAMIN D 24.1 NG/ML (20.0-100.0)
[2022-05-15 17:30] LABS: THYROID STIMULATING HORMONE 1.7 uIU/ML (0.55-4.78)
== END ==
LOC: M WUC 13:12
PROVIDERS: ATTEND Internal Medicine
DX: E03.9 Hypothyroidism, unspecified (principal); E55.9 Vitamin D deficiency, unspecified; Z79.890 Hormone replacement therapy

== ENCOUNTER 2022-09-29 10:48 | Emergency (ER) | payer BC ==
[~2022-09-29] VITALS: Ht 157.5 cm; Wt 64.4 kg
[2022-09-29 11:46] LABS: BASO # 0.1 10^3/uL (0.0-0.2); BASO % 0.5 % (0.0-1.0); EOS # 0.2 10^3/uL (0.0-0.5); EOS % 1.3 % (0.0-3.0); HEMATOCRIT 44.1 % (36.0-47.0); HEMOGLOBIN 14.7 g/dl (12.0-15.5); LYMPH # 1.8 10^3/uL (1.5-5.0); LYMPH % 13.1 % (24.0-44.0); MEAN CORPUSCULAR HEMOGLOBIN 30.4 pg (27.0-33.0); MEAN CORPUSCULAR HGB CONC 33.3 g/dl (32.0-36.5); MEAN CORPUSCULAR VOLUME 91.3 fl (80.0-96.0); MONO # 0.7 10^3/uL (0.0-0.8); NEUTROPHILS # 10.9 10^3/uL (1.5-8.5); NEUTROPHILS % 79.1 % (36.0-66.0); PLATELET COUNT, AUTOMATED 316 10^3/uL (150-450); RED BLOOD COUNT 4.83 10^6/uL (4.00-5.40); WHITE BLOOD COUNT 13.8 10^3/uL (4.0-10.0)
[2022-09-29] MEDS ORDERED: METOCLOPRAMIDE INJ 10MG/2ML VIAL IV ONE (12:15)
[2022-09-29] MEDS ORDERED: NS 1,000 ML IV ONE (12:15)
[2022-09-29 12:16] LABS: ALBUMIN 4.7 G/DL (3.2-5.2); BILIRUBIN,DIRECT 0.3 MG/DL (<0.4); BILIRUBIN,TOTAL 0.9 MG/DL (0.3-1.2); TOTAL PROTEIN 8.9 G/DL (5.7-8.2)
[2022-09-29 12:43] LABS: HCG, SERUM QUANTITATIVE 121442.3 MIU/ML (<4.2)
[2022-09-29] MEDS ORDERED: REGL10TA6 PO (14:27)
[2022-09-29] MEDS ORDERED: DICL10TA PO (14:27)
[2022-09-29] MEDS ORDERED: CEPH500C PO (14:27)
[2022-09-29 14:35] VITALS: BP 116/69
== END 2022-09-29 14:36 | disposition home or self-care (01) ==
LOC: M ED 11:56
DX: O21.9 Vomiting of pregnancy, unspecified (principal); O23.41 Unspecified infection of urinary tract in pregnancy, first trimester; E03.9 Hypothyroidism, unspecified; Z79.2 Long term (current) use of antibiotics; Z79.890 Hormone replacement therapy; Z79.899 Other long term (current) drug therapy; Z3A.08 8 weeks gestation of pregnancy
CPT/HCPCS: 36415; 80047; 80076; 81001; 83690; 84702; 85025; 86850; 86900; 86901; 87086; 96361; 96374; 99284; J2765

== ENCOUNTER → 2022-10-17 | Outpatient (CLI) | payer BC ==
[~2022-10-17] MED LIST changes: +CEPH500C PO; +DICL10TA PO; +REGL10TA6 PO
[2022-10-17 14:46] LABS: HEMATOCRIT 42.1 % (36.0-47.0); HEMOGLOBIN 13.9 g/dl (12.0-15.5); MEAN CORPUSCULAR HEMOGLOBIN 30.8 pg (27.0-33.0); MEAN CORPUSCULAR VOLUME 93.1 fl (80.0-96.0); PLATELET COUNT, AUTOMATED 254 10^3/uL (150-450); RED BLOOD COUNT 4.52 10^6/uL (4.00-5.40); WHITE BLOOD COUNT 11.1 10^3/uL (4.0-10.0)
[2022-10-17 15:34] LABS: FREE T4 1.26 NG/DL (0.89-1.76); THYROID STIMULATING HORMONE 3.519 uIU/ML (0.55-4.78)
[2022-10-17 15:40] LABS: HEPATITIS C VIRUS ABY INDEX 0.1 INDEX (<0.8); HIV 1&2 SCREEN NEGATIVE (NEGATIVE)
[2022-10-17 16:09] LABS: GC DNA AMPLIFICATION NEGATIVE (NEGATIVE)
== END ==
LOC: M PLALAB 10:19
PROVIDERS: ATTEND Advanced Practice Midwife
DX: Z34.01 Encounter for supervision of normal first pregnancy, first trimester (principal); Z3A.00 Weeks of gestation of pregnancy not specified

== ENCOUNTER → 2022-12-19 | Outpatient (CLI) | payer BC | LOC: M PLALAB 15:07 | PROVIDERS: ATTEND Obstetrics & Gynecology | DX: O99.282 Endocrine, nutritional and metabolic diseases complicating pregnancy, second trimester (principal); Z3A.00 Weeks of gestation of pregnancy not specified ==

== ENCOUNTER → 2023-02-21 | Outpatient (CLI) | payer BC ==
[2023-02-21 14:14] LABS: HEMATOCRIT 34.4 % (36.0-47.0); HEMOGLOBIN 11.4 g/dl (12.0-15.5); MEAN CORPUSCULAR HEMOGLOBIN 32.1 pg (27.0-33.0); MEAN CORPUSCULAR HGB CONC 33.1 g/dl (32.0-36.5); MEAN CORPUSCULAR VOLUME 96.9 fl (80.0-96.0); PLATELET COUNT, AUTOMATED 209 10^3/uL (150-450); RED BLOOD COUNT 3.55 10^6/uL (4.00-5.40); WHITE BLOOD COUNT 14.4 10^3/uL (4.0-10.0)
[2023-02-21 15:26] LABS: GC DNA AMPLIFICATION NEGATIVE (NEGATIVE)
== END ==
LOC: M PLALAB 08:07
PROVIDERS: ATTEND Advanced Practice Midwife
DX: Z34.02 Encounter for supervision of normal first pregnancy, second trimester (principal); Z3A.00 Weeks of gestation of pregnancy not specified

== ENCOUNTER → 2023-03-07 | Outpatient (CLI) | payer BC ==
[2023-03-07 16:23] LABS: THYROID STIMULATING HORMONE 1.648 uIU/ML (0.55-4.78)
[2023-03-07 16:24] LABS: FREE T4 0.96 NG/DL (0.89-1.76)
== END ==
LOC: M PLALAB 12:27
PROVIDERS: ATTEND Advanced Practice Midwife
DX: O99.283 Endocrine, nutritional and metabolic diseases complicating pregnancy, third trimester (principal)

== ENCOUNTER → 2023-04-02 | Outpatient (CLI) | payer BC ==
[~2023-04-02] MED LIST changes: +ALLE1TAB23 PO; +CETI10CH PO; +PREN200C PO
[2023-04-02 13:48] LABS: HEMATOCRIT 38.2 % (36.0-47.0); HEMOGLOBIN 12.8 g/dl (12.0-15.5); MEAN CORPUSCULAR HEMOGLOBIN 31.7 pg (27.0-33.0); MEAN CORPUSCULAR HGB CONC 33.5 g/dl (32.0-36.5); MEAN CORPUSCULAR VOLUME 94.6 fl (80.0-96.0); PLATELET COUNT, AUTOMATED 261 10^3/uL (150-450); RED BLOOD COUNT 4.04 10^6/uL (4.00-5.40); WHITE BLOOD COUNT 15.2 10^3/uL (4.0-10.0)
[2023-04-02 14:02] LABS: URIC ACID 6.5 MG/DL (3.1-7.8)
[2023-04-02 14:04] LABS: LDH LACTATE DEHYDROGENASE 204 U/L (120-246)
[2023-04-02 14:05] LABS: ALT/SGPT 14 U/L (7.0-40); AST/SGOT 22 U/L (<34); BILIRUBIN,TOTAL 0.2 MG/DL (0.3-1.2); CREATININE FOR GFR 0.52 MG/DL (0.55-1.30); GLOMERULAR FILTRATION RATE > 60.0 (>60)
[2023-04-02 18:25] LABS: CREATININE,RANDOM URINE 15.8 MG/DL
[2023-04-02 18:27] LABS: TOTAL PROTEIN,RANDOM URINE < 6.0 MG/DL (0.0-14.0)
== END ==
LOC: M PLALAB 10:48
PROVIDERS: ATTEND Obstetrics & Gynecology
DX: O16.9 Unspecified maternal hypertension, unspecified trimester (principal); Z3A.00 Weeks of gestation of pregnancy not specified

== ENCOUNTER 2023-04-06 09:06 | Outpatient (CLI) | payer BC ==
[~2023-04-06] VITALS: Ht 157.5 cm; Wt 82.5 kg
[~2023-04-06 09:06] MED LIST changes: -ALLE1TAB23 PO; -CETI10CH PO; -PREN200C PO
[2023-04-06] MEDS ORDERED: ALLE1TAB23 PO (09:31)
[2023-04-06] MEDS ORDERED: CETI10CH PO (09:32)
[2023-04-06] MEDS ORDERED: PREN200C PO (09:32)
[2023-04-06 09:34] VITALS: BP 132/87
== END 2023-04-06 10:15 | disposition home or self-care (01) ==
LOC: M LDO 09:06
PROVIDERS: ATTEND Advanced Practice Midwife
DX: O36.8130 Decreased fetal movements, third trimester, not applicable or unspecified (principal); O26.893 Other specified pregnancy related conditions, third trimester; R60.9 Edema, unspecified; O99.283 Endocrine, nutritional and metabolic diseases complicating pregnancy, third trimester; E03.9 Hypothyroidism, unspecified; Z3A.34 34 weeks gestation of pregnancy
CPT/HCPCS: 59025; G0463

== ENCOUNTER 2023-04-10 16:55 | Outpatient (CLI) | payer BC ==
[~2023-04-10] VITALS: Ht 157.5 cm; Wt 85.0 kg
[2023-04-10] VITALS (7 sets, daily range): BP systolic 136–145; BP diastolic 77–96; O2SAT 98
[~2023-04-10 16:55] MED LIST changes: +ALLE1TAB23 PO; +CETI10CH PO; +PREN200C PO
[2023-04-10] MEDS ORDERED: HOME MED LIST COMPLETE! XX SCH (17:20)
[2023-04-10 18:50] LABS: HEMATOCRIT 34.3 % (36.0-47.0); HEMOGLOBIN 11.6 g/dl (12.0-15.5); MEAN CORPUSCULAR HEMOGLOBIN 31.7 pg (27.0-33.0); MEAN CORPUSCULAR HGB CONC 33.8 g/dl (32.0-36.5); MEAN CORPUSCULAR VOLUME 93.7 fl (80.0-96.0); PLATELET COUNT, AUTOMATED 247 10^3/uL (150-450); RED BLOOD COUNT 3.66 10^6/uL (4.00-5.40); WHITE BLOOD COUNT 15.6 10^3/uL (4.0-10.0)
[2023-04-10 19:05] LABS: URIC ACID 7.2 MG/DL (3.1-7.8)
[2023-04-10 19:07] LABS: LDH LACTATE DEHYDROGENASE 179 U/L (120-246)
[2023-04-10 19:08] LABS: ALT/SGPT 15 U/L (7.0-40); AST/SGOT 20 U/L (<34); BILIRUBIN,TOTAL 0.2 MG/DL (0.3-1.2); CREATININE FOR GFR 0.46 MG/DL (0.55-1.30); GLOMERULAR FILTRATION RATE > 60.0 (>60)
[2023-04-10 19:35] LABS: CREATININE,RANDOM URINE 19.7 MG/DL
[2023-04-10 19:37] LABS: TOTAL PROTEIN,RANDOM URINE < 6.0 MG/DL (0.0-14.0)
== END 2023-04-10 21:00 | disposition home or self-care (01) ==
LOC: M LDO 16:55
PROVIDERS: ATTEND Specialist
DX: O99.513 Diseases of the respiratory system complicating pregnancy, third trimester (principal); O13.3 Gestational [pregnancy-induced] hypertension without significant proteinuria, third trimester; R06.02 Shortness of breath; Z3A.35 35 weeks gestation of pregnancy
CPT/HCPCS: 36415; 59025; 76815; 82247; 82570; 83615; 84156; 84450; 84460; 84550; 85027; G0463

== ENCOUNTER 2023-04-13 20:08 | Outpatient (CLI) | payer BC ==
[2023-04-13] VITALS (9 sets, daily range): BP systolic 137–151; BP diastolic 85–96; TEMP 98.2; O2SAT 99
[~2023-04-13] VITALS: Ht 157.5 cm; Wt 86.4 kg
[2023-04-13 21:20] LABS: HEMOGLOBIN 12.1 g/dl (12.0-15.5); MEAN CORPUSCULAR HEMOGLOBIN 31.7 pg (27.0-33.0); MEAN CORPUSCULAR HGB CONC 33.6 g/dl (32.0-36.5); MEAN CORPUSCULAR VOLUME 94.2 fl (80.0-96.0); PLATELET COUNT, AUTOMATED 243 10^3/uL (150-450); RED BLOOD COUNT 3.82 10^6/uL (4.00-5.40); WHITE BLOOD COUNT 15.5 10^3/uL (4.0-10.0)
[2023-04-13 21:41] LABS: TOTAL PROTEIN,RANDOM URINE 10.2 MG/DL (0.0-14.0)
[2023-04-13 21:45] LABS: LDH LACTATE DEHYDROGENASE 245 U/L (120-246)
[2023-04-13 21:46] LABS: ALT/SGPT 14 U/L (7.0-40); AST/SGOT 24 U/L (<34); BILIRUBIN,TOTAL 0.2 MG/DL (0.3-1.2); CREATININE,RANDOM URINE 30.8 MG/DL; GLOMERULAR FILTRATION RATE > 60.0 (>60)
[2023-04-13] MEDS ORDERED: BETAMETHASONE SOLUSPAN 6MG/ML 5ML VIAL IM ONE (22:25)
== END 2023-04-13 22:38 | disposition home or self-care (01) ==
LOC: M LDO 20:08
PROVIDERS: ATTEND Advanced Practice Midwife
DX: O14.03 Mild to moderate pre-eclampsia, third trimester (principal); E03.9 Hypothyroidism, unspecified; Z3A.35 35 weeks gestation of pregnancy; O99.283 Endocrine, nutritional and metabolic diseases complicating pregnancy, third trimester
CPT/HCPCS: 59025; 82247; 82570; 83615; 84156; 84450; 84460; 84550; 85027; 96372; G0463; J0702

== ENCOUNTER 2023-04-14 22:38 | Outpatient (CLI) | payer BC ==
[~2023-04-14] VITALS: Ht 157.5 cm; Wt 86.1 kg
[2023-04-14] MEDS ORDERED: BETAMETHASONE SOLUSPAN 6MG/ML 5ML VIAL IM ONE (22:55)
[2023-04-14 22:57] VITALS: BP 135/77; TEMP 98.2
== END 2023-04-14 23:31 | disposition home or self-care (01) ==
LOC: M LDO 22:38
PROVIDERS: ATTEND Obstetrics & Gynecology
DX: O14.03 Mild to moderate pre-eclampsia, third trimester (principal); O99.283 Endocrine, nutritional and metabolic diseases complicating pregnancy, third trimester; E03.9 Hypothyroidism, unspecified; Z3A.35 35 weeks gestation of pregnancy
CPT/HCPCS: 59025; 96372; G0463; J0702

== ENCOUNTER 2023-04-16 00:24 | Outpatient (CLI) | payer BC ==
[~2023-04-16] VITALS: Ht 157.5 cm; Wt 85.7 kg
[2023-04-16 00:38] VITALS: BP 137/79; O2SAT 97
[2023-04-16] MEDS ORDERED: HOME MED LIST COMPLETE! XX SCH (00:45)
[2023-04-16 02:28] VITALS: BP 131/76
[2023-04-16 02:33] LABS: HEMATOCRIT 35.8 % (36.0-47.0); HEMOGLOBIN 11.7 g/dl (12.0-15.5); MEAN CORPUSCULAR HGB CONC 32.7 g/dl (32.0-36.5); MEAN CORPUSCULAR VOLUME 94.7 fl (80.0-96.0); PLATELET COUNT, AUTOMATED 328 10^3/uL (150-450); RED BLOOD COUNT 3.78 10^6/uL (4.00-5.40); WHITE BLOOD COUNT 21.8 10^3/uL (4.0-10.0)
[2023-04-16 02:56] LABS: URIC ACID 7.9 MG/DL (3.1-7.8)
[2023-04-16 02:58] LABS: LDH LACTATE DEHYDROGENASE 189 U/L (120-246)
[2023-04-16 02:59] LABS: CREATININE,RANDOM URINE 21.9 MG/DL
[2023-04-16 02:59] LABS: ALBUMIN 2.8 G/DL (3.2-5.2); ALKALINE PHOSPHATASE 98 U/L (46-116); ALT/SGPT 16 U/L (7.0-40); AST/SGOT 23 U/L (<34); BILIRUBIN,TOTAL 0.2 MG/DL (0.3-1.2); BLOOD UREA NITROGEN 9 MG/DL (9-23); CALCIUM LEVEL 9.2 MG/DL (8.5-10.1); CARBON DIOXIDE LEVEL 18 MMOL/L (20-31); CHLORIDE LEVEL 108 MMOL/L (98-107); CREATININE FOR GFR 0.49 MG/DL (0.55-1.30); GLOMERULAR FILTRATION RATE > 60.0 (>60); GLUCOSE, FASTING 94 MG/DL (60-100); POTASSIUM SERUM 4.3 MMOL/L (3.5-5.1); SODIUM LEVEL 140 MMOL/L (136-145); TOTAL PROTEIN 6.5 G/DL (5.7-8.2)
[2023-04-16 03:00] LABS: TOTAL PROTEIN,RANDOM URINE < 6.0 MG/DL (0.0-14.0)
[2023-04-16 04:15] VITALS: BP 133/76
== END 2023-04-16 04:26 | disposition home or self-care (01) ==
LOC: M LDO 00:24
PROVIDERS: ATTEND Obstetrics & Gynecology
DX: O14.03 Mild to moderate pre-eclampsia, third trimester (principal); O47.03 False labor before 37 completed weeks of gestation, third trimester; Z3A.36 36 weeks gestation of pregnancy
CPT/HCPCS: 36415; 59025; 80053; 82570; 83615; 84156; 84550; 85027; G0463

== ENCOUNTER 2023-04-17 21:27 | Inpatient (IN) | payer BC ==
[~2023-04-17] VITALS: Ht 157.5 cm; Wt 88.1 kg
[2023-04-17] MEDS ORDERED: OXYTOCIN 30UNITS IN 0.9% NaCl 500ML IV BAG As Ordered ONE (21:45)
[2023-04-17] MEDS ORDERED: OXYTOCIN DRIP 30 UNITS in IV 1 EA IV SCH (21:45)
[2023-04-17] MEDS ORDERED: OXYTOCIN DRIP 30 UNITS in IV 1 EA IV PRN (21:50)
[2023-04-17] MEDS ORDERED: LIDOCAINE 1% MDV 20ML VIAL INFIL PRN (21:50)
[2023-04-17] MEDS ORDERED: TRANEXAMIC ACID INJection 1,000 MG in NS 100 ML IV PRN (21:50)
[2023-04-17] MEDS ORDERED: CARBOPROST TROMETHAMINE 250 MCG/ML AMP IM PRN (21:50)
[2023-04-17] MEDS ORDERED: PENICILLIN G POTASSIUM 5 MU IV 5 MU in D5W MINI-BAG PLUS 100 ML IV STA (21:50)
[2023-04-17 21:55] VITALS: BP 151/89
[2023-04-17 22:22] LABS: HEMATOCRIT 33.6 % (36.0-47.0); HEMOGLOBIN 11.5 g/dl (12.0-15.5); MEAN CORPUSCULAR HEMOGLOBIN 31.7 pg (27.0-33.0); MEAN CORPUSCULAR HGB CONC 34.2 g/dl (32.0-36.5); MEAN CORPUSCULAR VOLUME 92.6 fl (80.0-96.0); PLATELET COUNT, AUTOMATED 291 10^3/uL (150-450); RED BLOOD COUNT 3.63 10^6/uL (4.00-5.40); WHITE BLOOD COUNT 20.4 10^3/uL (4.0-10.0)
[2023-04-17 22:29] VITALS: BP 163/91
[2023-04-17] MEDS ORDERED: ONDANSETRON 4MG 2ML VIAL IV ONE (22:40)
[2023-04-17 22:44] LABS: URIC ACID 7.8 MG/DL (3.1-7.8)
[2023-04-17 22:47] LABS: LDH LACTATE DEHYDROGENASE 213 U/L (120-246)
[2023-04-17 22:48] LABS: ALT/SGPT 13 U/L (7.0-40); AST/SGOT 20 U/L (<34); BILIRUBIN,TOTAL < 0.2 MG/DL (0.3-1.2); CREATININE FOR GFR 0.49 MG/DL (0.55-1.30); GLOMERULAR FILTRATION RATE > 60.0 (>60)
[2023-04-17] MEDS ORDERED: AMPICILLIN SOD/SULBACTAM SOD 3 GM in D5W MINI-BAG PLUS 100 ML IV ONE (23:35)
[2023-04-17] MEDS ORDERED: MORPHINE PRES-FREE INJ 10 MG/10 ML VIAL As Ordered ONE (23:55)
[2023-04-17 23:58] VITALS: BP 100/58
[2023-04-18] VITALS (15 sets, daily range): BP systolic 94–130; BP diastolic 54–87; TEMP 97–98.7; O2SAT 98–100
[2023-04-18] MEDS ORDERED: CHLOROPROCAINE PRES. FREE 2% 20ML VIAL As Ordered ONE (00:17)
[2023-04-18] MEDS ORDERED: PHENYLephrine 500MCG 5ML (100MCG/ML) SYRINGE As Ordered ONE ×2 (00:17→00:41)
[2023-04-18] MEDS ORDERED: ePHEDrine SULFATE 25 MG/5 ML(5MG/ML) SYRINGE As Ordered ONE (00:17)
[2023-04-18] MEDS ORDERED: ACETAMINOPHEN TAB 650MG DOSE (2X325MG) PO PRN (00:55)
[2023-04-18] MEDS ORDERED: DOCUSATE SODIUM 100MG CAPSULE PO PRN (00:55)
[2023-04-18] MEDS ORDERED: MOM 30ML SUSPENSION UDC PO PRN (00:55)
[2023-04-18] MEDS ORDERED: RHOGAM 300MCG (1500IU) INJ IM SCH (00:55)
[2023-04-18] MEDS ORDERED: ANUSOL HC CREAM 30GM TOP PRN (00:55)
[2023-04-18] MEDS ORDERED: IBUPROFEN 600MG TAB PO PRN (00:55)
[2023-04-18] MEDS ORDERED: OXYTOCIN DRIP 30 UNITS in IV 1 EA IV SCH ×4 (00:55)
[2023-04-18] MEDS ORDERED: ACETAMINOPHEN 500 MG TAB PO PRN (00:55)
[2023-04-18] MEDS ORDERED: DIBUCAINE 1% OINTMENT 30GM TOP PRN (00:55)
[2023-04-18 01:16] LABS: MEAN CORPUSCULAR HEMOGLOBIN 31.8 pg (27.0-33.0); MEAN CORPUSCULAR HGB CONC 33.2 g/dl (32.0-36.5); MEAN CORPUSCULAR VOLUME 95.7 fl (80.0-96.0); PLATELET COUNT, AUTOMATED 259 10^3/uL (150-450); RED BLOOD COUNT 2.11 10^6/uL (4.00-5.40)
[2023-04-18 01:19] LABS: HEMATOCRIT 20.2 % (36.0-47.0); HEMOGLOBIN 6.7 g/dl (12.0-15.5); WHITE BLOOD COUNT 39.2 10^3/uL (4.0-10.0)
[2023-04-18] MEDS ORDERED: OXYTOCIN 30UNITS IN 0.9% NaCl 500ML IV BAG As Ordered ONE (01:44)
[2023-04-18] MEDS ORDERED: PEN G POT 3,000,000 UNIT/50 ML 3,000,000 UNIT in IV 1 EA IV SCH (02:00)
[2023-04-18] MEDS: AMPICILLIN SOD/SULBACTAM SOD 3 GM in D5W MINI-BAG PLUS 100 ML IV SCH ×4 (06:22→23:23)
[2023-04-18] MEDS: PRENATAL VITAMINS CHEWABLE TABLET PO SCH (09:00)
[2023-04-18 09:29] LABS: MEAN CORPUSCULAR HEMOGLOBIN 30.8 pg (27.0-33.0); MEAN CORPUSCULAR HGB CONC 34.4 g/dl (32.0-36.5); MEAN CORPUSCULAR VOLUME 89.5 fl (80.0-96.0); PLATELET COUNT, AUTOMATED 216 10^3/uL (150-450); RED BLOOD COUNT 3.15 10^6/uL (4.00-5.40); WHITE BLOOD COUNT 28.5 10^3/uL (4.0-10.0)
[2023-04-18 09:30] LABS: HEMATOCRIT 28.2 % (36.0-47.0); HEMOGLOBIN 9.7 g/dl (12.0-15.5)
[2023-04-18] MEDS: IBUPROFEN 800 MG TAB PO PRN (10:52)
[2023-04-19] MEDS ORDERED: AMPICILLIN SOD/SULBACTAM SOD 3 GM in D5W MINI-BAG PLUS 100 ML IV SCH (01:00)
[2023-04-19 02:20] VITALS: BP 119/77; O2SAT 96
[2023-04-19 05:27] VITALS: BP 134/83; O2SAT 97
[2023-04-19] MEDS: IBUPROFEN 800 MG TAB PO PRN (05:33)
[2023-04-19] MEDS: LEVOTHYROXINE 112MCG TABLET (0.112MG) PO SCH (08:46)
[2023-04-19] MEDS: PRENATAL VITAMINS CHEWABLE TABLET PO SCH (08:46)
[2023-04-19 10:00] VITALS: BP 134/70; O2SAT 98
[2023-04-19] MEDS ORDERED: LEVO112T2 PO (13:12)
[2023-04-19] MEDS ORDERED: HOME MED LIST COMPLETE! XX SCH (13:15)
[2023-04-19 14:00] VITALS: BP 132/76; O2SAT 98
[2023-04-19 18:00] VITALS: BP 138/86; O2SAT 97
[2023-04-19 22:00] VITALS: BP 146/81
[2023-04-20 02:00] VITALS: BP 130/72
[2023-04-20] MEDS: LEVOTHYROXINE 112MCG TABLET (0.112MG) PO SCH (05:12)
[2023-04-20] MEDS: IBUPROFEN 800 MG TAB PO PRN (05:13)
[2023-04-20 06:00] VITALS: BP 140/80
[2023-04-20] MEDS: PRENATAL VITAMINS CHEWABLE TABLET PO SCH (08:12)
[2023-04-20] MEDS ORDERED: MEASLES,MUMPS,RUBELLA VACCINE INJ (MMR-II) SC.IMMUN ONE (09:00)
[2023-04-20 10:00] VITALS: BP 142/81; O2SAT 98
== END 2023-04-20 17:05 | disposition home or self-care (01) | DRG 541 ==
LOC: M LDO 21:27 → M LDI 21:45 → M OBS 04-18 07:30
PROVIDERS: ADMIT Obstetrics & Gynecology; ATTEND Obstetrics & Gynecology
PROC: 10E0XZZ Delivery of Products of Conception, External Approach (ICD-10-PCS; principal; 2023-04-17)
PROC: 0KQM0ZZ Repair Perineum Muscle, Open Approach (ICD-10-PCS; 2023-04-18)
PROC: 10D17Z9 Manual Extraction of Products of Conception, Retained, Via Natural or Artificial Opening (ICD-10-PCS; 2023-04-18)
PROC: 30233N1 Transfusion of Nonautologous Red Blood Cells into Peripheral Vein, Percutaneous Approach (ICD-10-PCS; 2023-04-18)
DX: O14.14 Severe pre-eclampsia complicating childbirth (principal); O60.14X0 Preterm labor third trimester with preterm delivery third trimester, not applicable or unspecified; O72.0 Third-stage hemorrhage; Z37.0 Single live birth; Z3A.36 36 weeks gestation of pregnancy; E03.9 Hypothyroidism, unspecified; O99.284 Endocrine, nutritional and metabolic diseases complicating childbirth; Z79.899 Other long term (current) drug therapy; O70.1 Second degree perineal laceration during delivery

== ENCOUNTER → 2023-05-30 | Outpatient (CLI) | payer BC ==
[~2023-05-30] MED LIST changes: -ALLE1TAB23 PO; +FEXO-157 PO; +LEVO112T2 PO
[2023-05-30 16:40] LABS: HEMATOCRIT 37.2 % (36.0-47.0); HEMOGLOBIN 11.8 g/dl (12.0-15.5); MEAN CORPUSCULAR HEMOGLOBIN 28.6 pg (27.0-33.0); MEAN CORPUSCULAR HGB CONC 31.7 g/dl (32.0-36.5); MEAN CORPUSCULAR VOLUME 90.3 fl (80.0-96.0); PLATELET COUNT, AUTOMATED 378 10^3/uL (150-450); RED BLOOD COUNT 4.12 10^6/uL (4.00-5.40)
[2023-05-30 17:09] LABS: BLOOD UREA NITROGEN 10 MG/DL (9-23); CALCIUM LEVEL 9.5 MG/DL (8.5-10.1); CARBON DIOXIDE LEVEL 25 MMOL/L (20-31); CHLORIDE LEVEL 105 MMOL/L (98-107); CREATININE FOR GFR 0.58 MG/DL (0.55-1.30); GLOMERULAR FILTRATION RATE > 60.0 (>60); GLUCOSE, FASTING 87 MG/DL (60-100); POTASSIUM SERUM 4.2 MMOL/L (3.5-5.1); SODIUM LEVEL 138 MMOL/L (136-145)
[2023-05-31 08:39] LABS: WHITE BLOOD COUNT 8.2 10^3/uL (4.0-10.0)
== END ==
LOC: M LAB 16:07
PROVIDERS: ATTEND Internal Medicine
DX: N10 Acute pyelonephritis (principal)

== ENCOUNTER → 2023-06-08 | Outpatient (REF) | payer BC ==
[2023-06-08 22:43] LABS: APPEARANCE, URINE CLEAR (CLEAR); BACTERIA, URINE AUTO NEGATIVE (NEGATIVE); BILIRUBIN, URINE AUTO NEGATIVE (NEGATIVE); BLOOD, URINE BLOOD NEGATIVE (NEGATIVE); COLOR, URINE YELLOW (YELLOW); GLUCOSE, URINE (UA) AUTO NEGATIVE (NEGATIVE); KETONE, URINE AUTO NEGATIVE (NEGATIVE); LEUKOCYTE ESTERASE, URINE AUTO NEGATIVE (NEGATIVE); NITRITE, URINE AUTO NEGATIVE (NEGATIVE); PROTEIN, URINE AUTO NEGATIVE (NEGATIVE); RBC, URINE AUTO 0 /HPF (0-3); SPECIFIC GRAVITY URINE AUTO 1.011 (1.002-1.035); SQUAMOUS EPITHELIAL CELL UR AU 1 /HPF (0-6); UROBILINOGEN, URINE AUTO 0.2 mg/dL (0.0-2.0); WBC, URINE AUTO 1 /HPF (0-3)
== END ==
LOC: M LAB REF 22:13
PROVIDERS: ATTEND Physician Assistant
DX: N39.0 Urinary tract infection, site not specified (principal)

== ENCOUNTER → 2023-09-06 | Outpatient (REF) | payer BC | LOC: M SFHCWAGY 17:22 | PROVIDERS: ATTEND Obstetrics & Gynecology | DX: Z12.4 Encounter for screening for malignant neoplasm of cervix (principal); R87.615 Unsatisfactory cytologic smear of cervix ==

== ENCOUNTER → 2023-09-27 | Outpatient (REF) | payer BC | LOC: M PLALAB 14:44 | PROVIDERS: ATTEND Obstetrics & Gynecology | DX: Z01.419 Encounter for gynecological examination (general) (routine) without abnormal findings (principal) ==

== ENCOUNTER → 2023-12-18 | Outpatient (REF) | payer BC ==
[2023-12-18 11:55] LABS: THYROID STIMULATING HORMONE 24.439 uIU/ML (0.55-4.78)
[2023-12-18 11:58] LABS: ALBUMIN 4.2 G/DL (3.2-5.2); ALKALINE PHOSPHATASE 81 U/L (46-116); ALT/SGPT 31 U/L (7.0-40); AST/SGOT 19 U/L (<34); BILIRUBIN,TOTAL 0.4 MG/DL (0.3-1.2); BLOOD UREA NITROGEN 10 MG/DL (9-23); CALCIUM LEVEL 9.8 MG/DL (8.5-10.1); CARBON DIOXIDE LEVEL 25 MMOL/L (20-31); CHLORIDE LEVEL 109 MMOL/L (98-107); CHOLESTEROL LEVEL 185 MG/DL (<200); CHOLESTEROL RISK RATIO 6.42 (<5); GLOMERULAR FILTRATION RATE > 60.0 (>60); GLUCOSE, FASTING 89 MG/DL (60-100); HDL CHOLESTEROL 28.8 MG/DL (>40); NON-HDL-C 156.2 MG/DL; SODIUM LEVEL 141 MMOL/L (136-145); TOTAL PROTEIN 7.4 G/DL (5.7-8.2); TRIGLYCERIDES LEVEL 656 MG/DL (<150)
== END ==
LOC: M LABWUC 10:31
PROVIDERS: ATTEND Internal Medicine
DX: E03.9 Hypothyroidism, unspecified (principal); E55.9 Vitamin D deficiency, unspecified; D50.9 Iron deficiency anemia, unspecified

== ENCOUNTER → 2024-03-25 | Outpatient (CLI) | payer BC ==
[~2024-03-25] MED LIST changes: -FEXO-157 PO; +FEXO-63 PO
== END ==
LOC: M WUC 15:42
PROVIDERS: ATTEND Internal Medicine
DX: J18.9 Pneumonia, unspecified organism (principal)

== ENCOUNTER → 2025-04-22 | Outpatient (CLI) | payer OTHER ==
[2025-04-22 17:43] LABS: BASO # 0.1 10^3/uL (0.0-0.2); BASO % 0.7 % (0.0-1.0); EOS # 0.4 10^3/uL (0.0-0.5); EOS % 4.2 % (0.0-3.0); LYMPH # 2.4 10^3/uL (1.5-5.0); LYMPH % 23.2 % (24.0-44.0); MONO # 0.6 10^3/uL (0.0-0.8); MONO % 5.6 % (2.0-8.0); NEUTROPHILS # 6.9 10^3/uL (1.5-8.5); NEUTROPHILS % 65.4 % (36.0-66.0); PLATELET COUNT, AUTOMATED 302 10^3/uL (150-450)
[2025-04-22 17:49] LABS: ALT/SGPT 28 U/L (7.0-40); AST/SGOT 26 U/L (<34); CALCIUM LEVEL 8.9 MG/DL (8.5-10.1); CARBON DIOXIDE LEVEL 28 MMOL/L (20-31); CHLORIDE LEVEL 104 MMOL/L (98-107); CHOLESTEROL LEVEL 192 MG/DL (<200); CHOLESTEROL RISK RATIO 6.07 (<5); CREATININE FOR GFR 0.65 MG/DL (0.55-1.30); GLOMERULAR FILTRATION RATE > 90.0 (>60); LDL CHOLESTEROL 86.2 MG/DL (<100); NON-HDL-C 160.4 MG/DL; POTASSIUM SERUM 4.2 MMOL/L (3.5-5.1); SODIUM LEVEL 142 MMOL/L (136-145); TRIGLYCERIDES LEVEL 371 MG/DL (<150)
== END ==
LOC: M WUC 15:10
PROVIDERS: ATTEND Internal Medicine
DX: E03.9 Hypothyroidism, unspecified (principal); J45.909 Unspecified asthma, uncomplicated; R60.9 Edema, unspecified